=== PATIENT | female | born 1945 | race Caucasian/White ===

== ENCOUNTER 2016-10-24 06:53 | Day surgery (SDC) | payer OTHER ==
[~2016-10-24] VITALS: Ht 167.6 cm; Wt 56.7 kg
[~2016-10-24 06:53] MED LIST: CLARITIN,ALAVAR10 MG PO; FLONASE ALLERG9.9 ML BOTH NARES; GLUCOSAMINE &1 EAC1 PO; LO-DOSE ASPIRIN81 M2 PO; TYLENOL REGULA325 MG PO; VITAMIN D31000 UNI2 PO
[2016-10-24 07:51] VITALS: BP 167/72
[2016-10-24] MEDS ORDERED: MOTRIN600 MG PO (11:30)
[2016-10-24] MEDS ORDERED: NORCO 5/3251 TABLET PO (11:30)
[2016-10-24 12:02] VITALS: BP 174/79
[2016-10-24 13:00] VITALS: BP 157/66
== END 2016-10-24 13:06 | disposition home or self-care (01) ==
LOC: SDC 06:53
PROC: 0YQ60ZZ Repair Left Inguinal Region, Open Approach (ICD-10-PCS; principal; 2016-10-24)
DX: K40.90 Unilateral inguinal hernia, without obstruction or gangrene, not specified as recurrent (principal); Z85.828 Personal history of other malignant neoplasm of skin; Z79.82 Long term (current) use of aspirin; Z88.0 Allergy status to penicillin; F17.210 Nicotine dependence, cigarettes, uncomplicated; Z80.3 Family history of malignant neoplasm of breast; Z82.49 Family history of ischemic heart disease and other diseases of the circulatory system; Z82.0 Family history of epilepsy and other diseases of the nervous system
CPT/HCPCS: C1781; J0131; J0690; J3010; S0020